=== PATIENT | female | born 1945 ===

== ENCOUNTER 2018-02-05 05:20 | Day surgery (SDC) | payer OTHER ==
[~2018-02-05 05:20] MED LIST: CLONAZEPAM0.5 MG PO; OMEPRAZOLE20 M1 PO; PROTONIX40 MG PO
[2018-02-05] MEDS ORDERED: ULTRACET PO (08:25)
[2018-02-05] MEDS ORDERED: RECTICARE30 GM TOP (08:25)
== END 2018-02-05 14:20 | disposition home or self-care (01) ==
LOC: CIR.AMB 05:20
DX: D12.8 Benign neoplasm of rectum (principal)